=== PATIENT | female | born 1995 | race Caucasian/White ===

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

== ENCOUNTER 2017-08-08 08:52 | Emergency (ER) ==
[2017-08-08 09:03] VITALS: BP 120/78; TEMP 97.9; BMI 15.7
--- NOTE | 2017-08-08 09:12 | ED.PDOC ---
General ED Provider: Dr. CONNER NOBLES Chief Complaint: Abdominal Pain Stated Complaint: Umbilical pain; started yesterday 4 PM - constant. Nothing makes better or worse. Never had before; no injury or change in activities Time Seen by Physician: 09:05 Mode of Arrival: Walk-In Information Source: Patient, Family Exam Limitations: No limitations [facility] and Triage Documentation Reviewed and Agree: Yes Review of Systems - Review Of Systems Constitutional: Reports: No symptoms Respiratory: Reports: No symptoms. Denies: Cough Cardiac: Reports: No symptoms Musculoskeletal: Reports: No symptoms Skin: Reports: Change in color (infraumbilical erythema) All Other Systems: Reviewed and Negative Past Medical History - Past Medical History Previously Healthy: Yes Endocrine: Reports: None Cardiovascular: Reports: None Respiratory: Reports: None Hematological: Reports: None Gastrointestinal: Reports: None Genitourinary: Reports: None Neuro/Psych: Reports: Migraine, Seizure Musculoskeletal: Reports: None Cancer: Reports: None Last Menstrual Period: jul 15 - Surgical History General Surgical History: Reports: Unknown - Family History Family History: Reports: Unknown - Social History Smoking Status: Current every day smoker, Light tobacco smoker Hx Substance Use: No Alcohol Screening: None Physical Exam - Physical Exam Appearance: Well-appearing Pain Distress: Mild Eyes: MICHELLE, EOMI ENT: Oropharynx normal Neck: Supple Respiratory: Airway patent, Breath sounds clear, Breath sounds equal Cardiovascular: RRR, Pulses normal GI/: Tender ( around umbilicus; especially infraumbilical) Skin: Warm, Normal color Neurological: Sensation intact, Motor intact Critical Care Note - Critical Care Note Total Time (mins): 7 Course - Course Orders, Labs, Meds: Orders Category Date Time Status CBC W/ AUTO DIFF Stat LAB 08/08/17 10:10 Received COMPREHENSIVE METABOLIC PANEL Stat LAB 08/08/17 10:10 Received Vital Signs: Temp Pulse Resp BP Pulse Ox 08/08/17 08:52 97.9 F 131 H 20 120/78 99 Departure - Departure Time of Disposition: 10:10 Disposition: AMA Discharge Problem: Umbilical pain Instructions: Abdominal Pain (ED) Condition: Stable Pt referred to PMD for follow-up: Yes Allergies/Adverse Reactions: Allergies No Known Allergies Allergy (Verified 08/08/17 08:59) Home Medications: Ambulatory Orders Acetaminophen [Tylenol] 325 mg PO PRN 12/04/16
[2017-08-08 10:16] LABS: BASOPHILS % (AUTO) 0.3 % (0.0-3.0); EOSINOPHILS # (AUTO) 0.1 K/ul (0.0-0.7); EOSINOPHILS % (AUTO) 0.5 % (0.0-7.0); HEMATOCRIT 40.4 % (37.0-47.0); HEMOGLOBIN 13.8 g/dl (12.0-16.0); IMMATURE GRANULOCYTE % (AUTO) 0.2 % (0.0-5.0); LYMPHOCYTES # (AUTO) 2.3 K/uL (0.60-3.4); LYMPHOCYTES % (AUTO) 22.9 (10.0-50.0); MEAN CORPUSCULAR HEMOGLOBIN 30.6 pg (27.0-31.0); MEAN CORPUSCULAR HGB CONC 34.2 (31.8-35.4); MEAN CORPUSCULAR VOLUME 89.6 fl (81.0-99.0); MONOCYTES % (AUTO) 9.6 (0-10); NEUTROPHILS # (AUTO) 6.7 K/ul (2.0-6.9); NEUTROPHILS % (AUTO) 66.5; PLATELET COUNT 215 10^3/uL (140-440); RED BLOOD COUNT 4.51 10^6/ul (4.20-5.40); WHITE BLOOD COUNT 10.02 K/ul (4.6-10.2)
[2017-08-08 10:35] LABS: ALBUMIN 3.5 g/dL (3.4-5.0); ALBUMIN/GLOBULIN RATIO 1.21; ANION GAP 12.8; BILIRUBIN,TOTAL 1.06 mg/dL (0.00-1.20); BUN/CREATININE RATIO 9.23; CALCIUM 8.8 mg/dL (8.2-10.2); CREATININE 0.65 mg/dL (0.60-1.30); POTASSIUM 3.8 mmol/L (3.5-5.10); TOTAL PROTEIN 6.4 g/dL (6.4-8.2)
== END 2017-08-08 09:50 | disposition left against medical advice (07) ==
LOC: ED 08:52
DX: R10.33 Periumbilical pain (principal); F17.210 Nicotine dependence, cigarettes, uncomplicated
CPT/HCPCS: 36415; 80053; 85025; 99284